=== PATIENT | female | born 1940 | race Caucasian/White ===

== ENCOUNTER → 2017-11-16 08:10 | Outpatient (POV) | payer MEDICARE, SELFPAY | PROVIDERS: Visit Provider Dermatology | DX: Z00.00 Encounter for general adult medical examination without abnormal findings (principal) ==

== ENCOUNTER → 2018-01-23 07:43 | Outpatient (POV) | payer MEDICARE, SELFPAY | PROVIDERS: Visit Provider Dermatology | DX: Z00.00 Encounter for general adult medical examination without abnormal findings (principal) ==

== ENCOUNTER → 2018-10-02 07:58 | Outpatient (POV) | payer MEDICARE, SELFPAY | PROVIDERS: Visit Provider Dermatology | DX: Z00.00 Encounter for general adult medical examination without abnormal findings (principal) ==

== ENCOUNTER → 2018-10-04 08:52 | Outpatient (CLI) | payer MEDICARE, SELFPAY ==
--- NOTE | 2018-10-04 | NVE_ITS ---
Venous Exam Indications: 729.5 Pain in limb. Knot distal medial calf. Denies trauma. IMPRESSIONS 1. No evidence of deep or superficial vein thrombosis involving the left lower extremity 2. 1.9 cm hyperechoic nodule seen distal medial calf. ? lipoma. Left lower extremity venous duplex evaluation. Doppler flow study including spectral analysis, color and solomon scale imaging. Location: Vascular laboratory. Patient status: Outpatient. Tables: Venous flow and imaging: + +-------+ + Location Overall Flow properties + +-------+ + Left common femoral Patent Normal phasicity; spontaneous; normal augmentation; compressible + +-------+ + Left saphenofemoral junction Patent Compressible + +-------+ + Left profunda femoral Patent Compressible + +-------+ + Left femoral Patent Normal phasicity; spontaneous; normal augmentation; compressible + +-------+ + Left greater saphenous Patent Normal phasicity; spontaneous; normal augmentation; compressible + +-------+ + Left popliteal Patent Normal phasicity; spontaneous; normal augmentation; compressible + +-------+ + Left posterior tibial Patent Compressible + +-------+ + Left peroneal Patent Compressible + +-------+ + Left gastrocnemius Patent Compressible + +-------+ + Left soleal Patent Compressible + +-------+ + (Report amended ) Electronically signed by: Ranjit Azevedo [id number]
[2018-10-04 09:17] LABS: Basophils % 0.4 % (0.1-2.0); Eosinophils # 0.1 K/mm3 (0.0-0.4); Eosinophils % 1.7 % (0.1-12.0); Hematocrit 41.6 % (37.0-47.0); Hemoglobin 12.7 g/dL (12.2-16.2); Lymphocytes # 2.2 K/mm3 (0.7-4.5); Mean Corpuscular HGB Conc 30.5 g/dL (31.8-35.4); Mean Corpuscular Hemoglobin 28.7 pg (27.0-31.2); Mean Corpuscular Volume 94.2 fl (81-99); Monocytes # 0.6 K/mm3 (0.1-1.0); Monocytes % 8.6 % (1.7-9.3); Neutrophils # 3.6 K/mm3 (1.8-7.8); Neutrophils % 55.4 % (37.0-80.0); Platelet Count 229 K/mm3 (142-424); Red Blood Count 4.42 M/mm3 (4.20-5.40); Red Cell Distribution Width 13.2 % (11.5-17.5); White Blood Count 6.4 K/mm3 (4.8-10.8)
[2018-10-04 11:28] LABS: Alanine Aminotransferase 23 U/L (12-78); Albumin Level 3.5 gm/dL (3.4-5.0); Albumin/Globulin Ratio 1.2 (1.1-1.8); Alkaline Phosphatase 58 U/L (46-116); Anion Gap 14.1 mEq/L (5-15); Aspartate Amino Transferase 15 U/L (15-37); Bilirubin,Total 0.4 mg/dL (0.2-1.0); Blood Urea Nitrogen 18 mg/dL (7-18); Calcium 8.7 mg/dL (8.5-10.1); Carbon Dioxide 28 mmol/L (21.0-32.0); Chloride 107 mmol/L (98-107); Chol/HDL Ratio 2.9 (1-3.5); Cholesterol 195 mg/dL (140-200); Creatinine,Serum 0.79 mg/dL (0.55-1.02); Estimated Glomerular Filt Rate 70 ml/min (>60); GFR (African American) 85 ML/MIN (>60); Glucose 86 mg/dL (74-106); HDL Cholesterol 67 mg/dL (29-89); Iron 96 ug/dl (28-170); LDL Cholesterol 106 mg/dL (0-130); Potassium 4.1 mmoL/L (3.5-5.1); Sodium 145 mmol/L (136-145); Thyroid Stimulating Hormone 0.68 uIU/ml (0.358-3.740); Total Protein,Serum 6.5 gm/dL (6.4-8.2); Triglycerides 111 mg/dL (30-200); VLDL Cholesterol 22 mg/dL (0-40)
[2018-10-05 17:12] LABS: Vitamin B12 454 pg/mL (232-1245); Vitamin D 25 Hydroxy 19.9 ng/mL (30.0-100.0)
== END ==
PROVIDERS: Referring Provider Family Medicine; Visit Provider Family Medicine
DX: R63.4 Abnormal weight loss (principal); R53.83 Other fatigue; M79.605 Pain in left leg; I83.812 Varicose veins of left lower extremity with pain; E55.9 Vitamin D deficiency, unspecified; Z79.899 Other long term (current) drug therapy
CPT/HCPCS: 36415; 80053; 80061; 82607; 82652; 83540; 84443; 85025; 93971

== ENCOUNTER → 2019-11-19 08:18 | Outpatient (POV) | payer MEDICARE, SELFPAY | PROVIDERS: PCP Family Medicine; Visit Provider Dermatology | DX: Z00.00 Encounter for general adult medical examination without abnormal findings (principal) ==

== ENCOUNTER → 2020-09-23 09:27 | Outpatient (CLI) | payer MEDICARE, SELFPAY ==
--- NOTE | 2020-09-23 09:34 | XR_ITS ---
PROCEDURE: XR CHEST 2V CLINICAL HISTORY: PERSISTENT COUGH COMPARISON: CT CT ABDOMEN PELVIS W CON from 06/05/2019 FINDINGS: The cardiomediastinal silhouette and pulmonary vascularity are within normal limits. Increased markings are once again noted in the right lower lobe and right middle lobe. Calcified nodes are present in the right hilum. In the anterior clear space there are increased markings of as well which appear somewhat tubular. There is thoracic kyphosis. IMPRESSION: Persistent atelectasis or infiltrate in the right middle lobe and right lower lobe Increased markings in the anterior clear space probably right upper lobe having a somewhat tubular appearance which could be related to bronchiectasis is or unusual consolidation. Consider chest CT with contrast for further evaluation. Dictated by: Ranjit Azevedo MD 09/23/2020 11:50 Ranjit Azevedo MD in [place] 09/23/2020 11:50
== END ==
PROVIDERS: PCP Family Medicine; Visit Provider Family Medicine
DX: R05 Cough (principal)
CPT/HCPCS: 71046

== ENCOUNTER 2021-03-03 10:35 | Emergency (ER) | payer MEDICARE, SELFPAY ==
[2021-03-03 10:37] VITALS: BP 154/88; PULSE 73; RESP 18; TEMP 37.1; O2SAT 95; BMI 17.2
[2021-03-03 11:26] LABS: Coronavirus 19, PCR Not Detected (NotDetected); Influenza A, PCR Not Detected (NotDetected); Influenza B, PCR Not Detected (NotDetected)
[2021-03-03 11:28] LABS: Microscopic, Urine URINE MICROSCOPIC (MICROSCOPIC)
--- NOTE | 2021-03-03 11:32 | ECG_ITS ---
APPROVED REPORT Exam: Resting ECG HR:60 bpm ECG Measurements Heart Rate 60 AXES MI 152 P 10 QRSd 62 QRS 0 QT 390 T 53 QTc 390 Conclusion Normal sinus rhythm Low voltage QRS Borderline ECG Electronically signed by : Kayden Jiménez MD 03/04/2021 21:40:09
[2021-03-03 11:34] LABS: Basophils # 0.1 K/mm3 (0-0.2); Basophils % 0.5 % (0.1-2.0); Eosinophils # 0.1 K/mm3 (0.0-0.4); Eosinophils % 0.8 % (0.1-12.0); Hemoglobin 14.5 g/dL (12.2-16.2); Lymphocytes # 1.9 K/mm3 (0.7-4.5); Lymphocytes % 20.4 % (10-50); Mean Corpuscular HGB Conc 33.8 g/dL (31.8-35.4); Mean Corpuscular Hemoglobin 32.1 pg (27.0-31.2); Mean Corpuscular Volume 95.1 fl (81-99); Mean Platelet Volume 8.9 fl (7.4-10.4); Monocytes # 0.8 K/mm3 (0.1-1.0); Monocytes % 8.8 % (1.7-9.3); Neutrophils # 6.3 K/mm3 (1.8-7.8); Neutrophils % 69.5 % (37.0-80.0); Platelet Count 285 K/mm3 (142-424); Red Blood Count 4.52 M/mm3 (4.20-5.40); Red Cell Distribution Width 13.3 % (11.5-17.5); White Blood Count 9.1 K/mm3 (4.8-10.8)
[2021-03-03 11:46] LABS: Appearance,Urine CLEAR (Clear); Bilirubin,Urine Negative (Negative); Blood, Urine Negative (Negative); Color,Urine YELLOW (Yellow); Glucose,Urine (UA) Negative (Negative); Ketones,Urine Negative (Negative); Leukocyte Esterase,Urine 1+ (Negative); Nitrate,Urine Negative (Negative); Protein,Urine Negative (Negative); Specific Gravity, Urine <= 1.005 (1.005-1.030); Urobilinogen,Urine 0.2 EU/dl (0.2)
[2021-03-03 11:48] LABS: Activated Partial Thrombo Time 25.6 seconds (22.8-30.6); INR 0.92 (0.9-1.1); Prothrombin Time 10.5 seconds (10.1-12.5)
[2021-03-03 12:01] LABS: Alanine Aminotransferase 26 U/L (12-78); Albumin Level 3.6 g/dl (3.5-5.0); Albumin/Globulin Ratio 1.3 (1.1-1.8); Alkaline Phosphatase 53 U/L (38-126); Anion Gap 9.4 mEq/L (5-15); Aspartate Amino Transferase 32 U/L (14-36); Bilirubin,Total 0.5 mg/dl (0.2-1.3); Blood Urea Nitrogen 20 mg/dl (7-17); Calcium 8.8 mg/dl (8.4-10.2); Carbon Dioxide 28 mmol/L (22.0-30.0); Chloride 103 mmol/L (98-107); Creatinine Clearance Estimated 28 mL/min (50-200); Estimated Glomerular Filt Rate 69 ml/min (>60); GFR (African American) 83 ML/MIN (>60); Globulin 2.8 g/dL (1.3-3.2); Glucose 88 mg/dl (74-100); Lipase 109 U/L (23-300); Potassium 4.4 mmoL/L (3.5-5.1); Sodium 136 mmol/L (136-145); Total Protein,Serum 6.4 g/dl (6.3-8.2)
--- NOTE | 2021-03-03 13:12 | HMH.EDGENADL ---
ED Disposition Clinical Impression: Epigastric abdominal pain Disposition: Home, Self-Care Condition on Discharge: Fair Referrals: Christiano Hernandez MD [Primary Care Provider] - - Critical Care Critical Care Time: No Attestation: On 03/03/21, the high probability of a clinically significant, sudden or life threatening deterioration of the following system(s) required my full and direct attention, intervention and personal management. The time I documented below is in addition to time spent performing reported procedures but includes the following listed in this critical care notation. Medical Decision Making - Medical Records Medical records reviewed: Yes: I reviewed the patient's medical records. - [facility] Inquiry Pt receiving controlled substance: No Vital Signs: 03/03/21 10:37 03/03/21 14:39 Temperature 98.8 F 98.8 F Temperature Source Oral Pulse Rate 67 Pulse Rate [Right Radial] 73 Respiratory Rate 18 18 Blood Pressure 160/94 H Blood Pressure [Right Arm] 154/88 H Blood Pressure Mean [Right Arm] 110 Blood Pressure Source Automatic Cuff Blood Pressure Source [Right Arm] Automatic Cuff Blood Pressure Position Sitting Blood Pressure Position [Right Arm] Sitting 02 Sat by Pulse Oximetry 95 Oxygen Delivery Method Room Air Room Air - Lab Data Lab results reviewed: Yes: I reviewed the patient's lab results. Lab Results 03/03/21 11:15: Urine Color Yellow, Urine Appearance Clear, Urine pH 6.0, Ur Specific [place] <= 1.005, Urine Protein Negative, Urine Glucose (UA) Negative, Urine Ketones Negative, Urine Blood Negative, Urine Nitrate Negative, Urine Bilirubin Negative, Urine Urobilinogen 0.2, Ur Leukocyte Esterase 1+ A, Urine RBC 3-5, Urine WBC 3-5 03/03/21 11:15: WBC 9.1, RBC 4.52, Hgb 14.5, Hct 43.0, MCV 95.1, MCH 32.1 H, MCHC 33.8, RDW 13.3, Plt Count 285, MPV 8.9, Neut % (Auto) 69.5, Lymph % (Auto) 20.4, [place] % (Auto) 8.8, Eos % (Auto) 0.8, Baso % (Auto) 0.5, Neut # (Auto) 6.3, Lymph # (Auto) 1.9, [place] # (Auto) 0.8, Eos # (Auto) 0.1, Baso # (Auto) 0.1 03/03/21 11:15: Sodium 136, Potassium 4.4, Chloride 103, Carbon Dioxide 28, Anion Gap 9.4, BUN 20 H, Creatinine 0.80, Estimated Creat Clear 28, Estimated GFR 69, Est GFR ( Amer) 83, Glucose 88, Calcium 8.8, Total Bilirubin 0.5, AST 32, ALT 26, Alkaline Phosphatase 53, Troponin I 0.01, Total Protein 6.4, Albumin 3.6, Globulin 2.8, Albumin/Globulin Ratio 1.3 03/03/21 11:15: SARS-CoV-2 (PCR) Not detected, Influenza A Untype (PCR) Not detected, Influenza Type B (PCR) Not detected 03/03/21 11:15: PT 10.5, INR 0.92, APTT 25.6 03/03/21 11:15: Lipase 109 Result diagrams: 03/03/21 11:15 03/03/21 11:15 Orders (Tests/Meds): ED MEDICATIONS Discontinued Medications Generic Name Dose Route Start Last Admin Trade Name Freq PRN Reason Stop Dose Admin Belladonna Alkaloids 60 ml 03/03/21 12:07 03/03/21 12:18 Gi Cocktail 60ml Udc PO 03/03/21 12:08 60 ml ONCE ONE Administration Lactated Ringer's 500 mls @ 999 mls/hr 03/03/21 12:15 03/03/21 12:18 Lactated Ringer's 1000 Ml Bag IV 03/03/21 12:45 999 mls/hr .Q31M TERRI Administration Ondansetron HCl 4 mg 03/03/21 12:07 03/03/21 12:18 Ondansetron 4mg/2ml Vial IV 03/03/21 12:08 4 mg ONCE ONE Administration ORDERS Category Date Time Status Urine Culture Stat Micro 03/03/21 11:15 Received Medical Decision Narrative: Is an 81-year-old female with past medical history of hypertension presenting to the ED for generalized weakness. Patient is awake, alert, not in acute distress. Patient is hemodynamically stable, afebrile. Patient's physical exam is unremarkable. Patient has clear breath sounds bilaterally soft nondistended nontender abdomen. Differential includes was not limited due to generalized weakness secondary to viral gastroenteritis, otitis, gastritis, ACS. Given this a CBC, CMP, EKG, troponin performed. Patient is given a GI cocktail, Zofran, IV
[2021-03-03 13:52] LABS: Troponin I 0.01 ng/ml (0.00-0.034)
[2021-03-03 14:39] VITALS: BP 160/94; PULSE 67; RESP 18; TEMP 37.1; O2SAT 95
== END 2021-03-03 14:39 | disposition home or self-care (01) ==
PROVIDERS: Emergency Provider Emergency Medicine; PCP Family Medicine
DX: Z20.822 Contact with and (suspected) exposure to COVID-19 (principal); R10.13 Epigastric pain; R11.0 Nausea; I10 Essential (primary) hypertension
CPT/HCPCS: 80053; 81001; 83690; 84484; 85025; 85610; 85730; 87086; 93005; 96365; 96375; 99284; C9803; J2405; U0003; U0005

== ENCOUNTER 2021-03-05 08:40 | Emergency (ER) | payer MEDICARE, SELFPAY ==
[2021-03-05 08:41] VITALS: BP 165/86; PULSE 77; RESP 16; TEMP 36.7; O2SAT 97; BMI 17.7
[2021-03-05 09:00] VITALS: BP 145/95; PULSE 90; RESP 18; O2SAT 97
--- NOTE | 2021-03-05 09:02 | HMH.EDGENADL ---
ED Disposition Clinical Impression: Nausea Abdominal pain Qualifiers: Abdominal location: generalized Qualified Code(s): R10.84 - Generalized abdominal pain Disposition: Home, Self-Care Condition on Discharge: Good Instructions: DI for Acute Abdominal Pain, DI for Nausea -- Adult Additional Instructions: Call today to make appointment to see Dr. Hernandez on Monday in his [place] office for your abdominal pain and abnormal CT scan findings.. Zofran as needed for nausea. Prescriptions: Ondansetron [Zofran 4mg ODT] 4 mg PO TIDP PRN #10 tab PRN Reason: Nausea And Vomiting Transmission Status: Pending to [facility]/pharmacy #[id number] Referrals: Christiano Hernandez MD [Primary Care Provider] - - Critical Care Critical Care Time: No Attestation: On 03/05/21, the high probability of a clinically significant, sudden or life threatening deterioration of the following system(s) required my full and direct attention, intervention and personal management. The time I documented below is in addition to time spent performing reported procedures but includes the following listed in this critical care notation. Medical Decision Making - [facility] Inquiry Pt receiving controlled substance: No Vital Signs: 03/05/21 08:41 03/05/21 09:00 03/05/21 09:30 Temperature 98.1 F Temperature Source Oral Pulse Rate 90 87 Pulse Rate [Right Radial] 77 Respiratory Rate 16 18 18 Blood Pressure 145/95 H 150/85 H Blood Pressure [Right Arm] 165/86 H Blood Pressure Mean 104 114 Blood Pressure Mean [Right Arm] 112 Blood Pressure Source [Right Arm] Automatic Cuff Blood Pressure Position [Right Arm] Sitting 02 Sat by Pulse Oximetry 97 97 96 Oxygen Delivery Method Room Air - Lab Data Lab Results 03/05/21 09:00: WBC 8.3, RBC 4.48, Hgb 13.9, Hct 42.5, MCV 94.9, MCH 31.1, MCHC 32.8, RDW 13.4, Plt Count 236, MPV 7.8, Neut % (Auto) 66.9, Lymph % (Auto) 23.4, [place] % (Auto) 7.4, Eos % (Auto) 1.3, Baso % (Auto) 0.9, Neut # (Auto) 5.6, Lymph # (Auto) 2.0, [place] # (Auto) 0.6, Eos # (Auto) 0.1, Baso # (Auto) 0.1 03/05/21 09:00: Sodium 133 L, Potassium 5.0, Chloride 99, Carbon Dioxide 30, Anion Gap 9.0, BUN 16, Creatinine 0.70, Estimated Creat Clear 28, Estimated GFR 80, Est GFR ( Amer) 97, Glucose 89, Calcium 8.8, Total Bilirubin 1.1, AST 38 H, ALT 19 D, Alkaline Phosphatase 45, Total Protein 6.8, Albumin 3.8, Globulin 3.0, Albumin/Globulin Ratio 1.3, Amylase 87, Lipase 98 03/05/21 09:00: Troponin I 0.01 Result diagrams: 03/05/21 09:00 03/05/21 09:00 Orders (Tests/Meds): ED MEDICATIONS Discontinued Medications Generic Name Dose Route Start Last Admin Trade Name Freq PRN Reason Stop Dose Admin Iopamidol 70 ml 03/05/21 09:55 03/05/21 09:55 Iopamidol-370 (76%);100ml Bottle IV 03/05/21 09:56 70 ml ONCE ONE Administration Ondansetron HCl 4 mg 03/05/21 09:19 03/05/21 09:25 Ondansetron 4mg/2ml Vial IV 03/05/21 09:20 4 mg ONCE ONE Administration Sodium Chloride 10 ml 03/05/21 09:55 03/05/21 09:55 Sodium Chloride 0.9% 10ml Vial IV 03/05/21 09:56 10 ml ONCE ONE Administration ORDERS Category Date Time Status Troponin I Q3H Lab 03/05/21 12:30 Ordered Troponin I Q3H Lab 03/05/21 15:30 Ordered UA [Urinalysis and Microscopic] Stat Lab 03/05/21 09:05 Ordered - ECG Data Tracing #1 EKG interpreted by Carlos Enrique lAves MD: Rhythm: sinus Rate: 76 [place]: normal Ectopy: none Conduction: normal ST Segment Changes: none T Wave Changes: none Q Waves: none No evidence of acute ischemia or injury Normal electrocardiogram - Physician Consults Physician Consulted: David Time: 10:40 Reason -: Pt condition Comment/Response: Discussed all clinical findings and CT scan reading. He request the patient follow-up with him in his office in [place] on Monday. Medical Decision Narrative: Patient does not have any pulmonary symptoms referable to the findings on her CT sc
[2021-03-05 09:15] LABS: Basophils # 0.1 K/mm3 (0-0.2); Basophils % 0.9 % (0.1-2.0); Eosinophils # 0.1 K/mm3 (0.0-0.4); Eosinophils % 1.3 % (0.1-12.0); Hematocrit 42.5 % (37.0-47.0); Hemoglobin 13.9 g/dL (12.2-16.2); Lymphocytes % 23.4 % (10-50); Mean Corpuscular HGB Conc 32.8 g/dL (31.8-35.4); Mean Corpuscular Hemoglobin 31.1 pg (27.0-31.2); Mean Corpuscular Volume 94.9 fl (81-99); Mean Platelet Volume 7.8 fl (7.4-10.4); Monocytes # 0.6 K/mm3 (0.1-1.0); Monocytes % 7.4 % (1.7-9.3); Neutrophils # 5.6 K/mm3 (1.8-7.8); Neutrophils % 66.9 % (37.0-80.0); Platelet Count 236 K/mm3 (142-424); Red Blood Count 4.48 M/mm3 (4.20-5.40); Red Cell Distribution Width 13.4 % (11.5-17.5); White Blood Count 8.3 K/mm3 (4.8-10.8)
--- NOTE | 2021-03-05 09:15 | CT_ITS ---
PROCEDURE: CT ABDOMEN PELVIS W CON CLINICAL INDICATION: abdominal pain COMPARISON: CT ABDPELW/O CT ABD PELVIS W/O CONTRAST from 05/16/[address] ABDOMEN PELVIS W CON from 06/05/2019 TECHNIQUE: IV Contrast: 75ML Isovue 370 Oral Contrast None Axial images obtained with sagittal and coronal reformats. All CT scans at the facility use one or more dose reduction, viz: automated exposure control, ma/kV adjustment per patient size (including targeted exams where dose is matched to indication, i.e. head), or iterative reconstruction technique. FINDINGS: LOWER THORAX: There is volume loss of the right middle lobe. In the right upper lobe inferiorly there are prominent pulmonary vessels. I suppose these could also represent dilated fluid-filled bronchi. CTA of the chest with delayed imaging would be helpful for further evaluation. Volume loss is present in the lingula as well. Numerous mildly dilated vascular structures in the right lower lobe laterally and peripherally. There are scattered pleural and sub pleural parenchymal opacities in both lower lobes. ABDOMEN & PELVIS: The liver, spleen, adrenal glands, and pancreas have an unremarkable appearance. 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 Prominent extrarenal pelvis is present on the right. Nonobstructing stone is present in the upper pole of the right kidney at 3 mm with a cortical scar peripheral to this region. No obvious ureteral calculi. No intestinal obstruction or free air. No radiopaque gallstones. No evidence of appendicitis or diverticulitis. There is diverticulosis of the sigmoid colon. There is diffuse osteopenia of the spine. Degenerative changes in the lumbar spine. IMPRESSION: What appears to represent diffuse vascular dilatation of the right upper lobe noted with right middle lobe and lingular volume loss and mild vascular dilatation of the peripheral right lower lobe. These could also be related to fluid-filled bronchi. Nonemergent dedicated CTA of the chest with both arterial and venous phase imaging may provide further evaluation. Scattered small opacities are present in the lower lobes and are nonspecific. Prior left nephrectomy. Mild prominence of the right renal pelvis not significantly changed. Nonobstructing right renal calculus with cortical scar Colonic diverticulosis without diverticulitis. No acute abdominal or pelvic findings Dictated by: Ranjit Azevedo MD 03/05/2021 10:14 Ranjit Azevedo MD in [place] 03/05/2021 10:14
[2021-03-05 09:19] LABS: Alanine Aminotransferase 19 U/L (12-78); Albumin Level 3.8 g/dl (3.5-5.0); Albumin/Globulin Ratio 1.3 (1.1-1.8); Alkaline Phosphatase 45 U/L (38-126); Amylase 87 U/L (30-110); Aspartate Amino Transferase 38 U/L (14-36); Bilirubin,Total 1.1 mg/dl (0.2-1.3); Blood Urea Nitrogen 16 mg/dl (7-17); Calcium 8.8 mg/dl (8.4-10.2); Carbon Dioxide 30 mmol/L (22.0-30.0); Chloride 99 mmol/L (98-107); Creatinine Clearance Estimated 28 mL/min (50-200); Estimated Glomerular Filt Rate 80 ml/min (>60); GFR (African American) 97 ML/MIN (>60); Glucose 89 mg/dl (74-100); Lipase 98 U/L (23-300); Sodium 133 mmol/L (136-145); Total Protein,Serum 6.8 g/dl (6.3-8.2)
[2021-03-05 09:30] VITALS: BP 150/85; PULSE 87; RESP 18; O2SAT 96
--- NOTE | 2021-03-05 09:33 | ECG_ITS ---
APPROVED REPORT Exam: Resting ECG HR:76 bpm ECG Measurements Heart Rate 76 AXES IN 162 P 54 QRSd 66 QRS 20 QT 366 T 55 QTc 411 Conclusion Normal sinus rhythm Normal ECG Electronically signed by : Kayden Jiménez MD 03/06/2021 19:30:32
--- NOTE | 2021-03-05 09:35 | PC.NURSE ---
Pt to CT
[2021-03-05 09:41] LABS: Troponin I 0.01 ng/ml (0.00-0.034)
--- NOTE | 2021-03-05 10:37 | PC.NURSE ---
Dr David clinton
[2021-03-05 11:18] VITALS: BP 149/87; PULSE 89; RESP 16; TEMP 36.7; O2SAT 97
== END 2021-03-05 11:20 | disposition home or self-care (01) ==
PROVIDERS: Emergency Provider Emergency Medicine; PCP Family Medicine
DX: R10.84 Generalized abdominal pain (principal); R11.0 Nausea
CPT/HCPCS: 36415; 74177; 80053; 82150; 83690; 84484; 85025; 93005; 96374; 99283; J2405; Q9967

== ENCOUNTER → 2021-04-27 14:25 | Outpatient (CLI) | payer MEDICARE, SELFPAY ==
[2021-04-27 15:24] LABS: Basophils # 0.1 K/mm3 (0-0.2); Basophils % 0.7 % (0.1-2.0); Eosinophils # 0.1 K/mm3 (0.0-0.4); Eosinophils % 0.9 % (0.1-12.0); Hematocrit 43.6 % (37.0-47.0); Hemoglobin 13.8 g/dL (12.2-16.2); Lymphocytes # 1.8 K/mm3 (0.7-4.5); Lymphocytes % 26.7 % (10-50); Mean Corpuscular HGB Conc 31.7 g/dL (31.8-35.4); Mean Corpuscular Hemoglobin 31.4 pg (27.0-31.2); Mean Corpuscular Volume 98.9 fl (81-99); Mean Platelet Volume 8.7 fl (7.4-10.4); Monocytes # 0.4 K/mm3 (0.1-1.0); Monocytes % 5.6 % (1.7-9.3); Neutrophils # 4.6 K/mm3 (1.8-7.8); Neutrophils % 66.2 % (37.0-80.0); Platelet Count 297 K/mm3 (142-424); Red Blood Count 4.41 M/mm3 (4.20-5.40); Red Cell Distribution Width 13.7 % (11.5-17.5); White Blood Count 6.9 K/mm3 (4.8-10.8)
[2021-04-27 16:05] LABS: C-Reactive Protein 1.2 mg/L (0-4)
[2021-05-02 19:08] LABS: D001-IgE D pteronyssinus <0.10 kU/L (Class 0); D002-IgE D farinae <0.10 kU/L (Class 0); E001-IgE Cat Dander <0.10 kU/L (Class 0); E005-IgE Dog Dander <0.10 kU/L (Class 0); E072-IgE Mouse Urine <0.10 kU/L (Class 0); G002-IgE Bermuda Grass <0.10 kU/L (Class 0); G006-IgE Timothy Grass <0.10 kU/L (Class 0); I006-IgE Cockroach, German <0.10 kU/L (Class 0); Immunoglobulin E, Total 333 IU/mL (6-495); M001-IgE Penicillium chrysogen <0.10 kU/L (Class 0); M002-IgE Cladosporium herbarum <0.10 kU/L (Class 0); M003-IgE Aspergillus fumigatus <0.10 kU/L (Class 0); M006-IgE Alternaria alternata <0.10 kU/L (Class 0); T001-IgE Maple/Box Elder <0.10 kU/L (Class 0); T003-IgE Common Silver Birch <0.10 kU/L (Class 0); T006-IgE Cedar, Mountain <0.10 kU/L (Class 0); T007-IgE Oak, White <0.10 kU/L (Class 0); T008-IgE Elm, American <0.10 kU/L (Class 0); T010-IgE Walnut <0.10 kU/L (Class 0); T011-IgE Maple Leaf Sycamore <0.10 kU/L (Class 0); T014-IgE Cottonwood <0.10 kU/L (Class 0); T015-IgE Ash, White <0.10 kU/L (Class 0); T022-IgE Pecan, Hickory <0.10 kU/L (Class 0); T070-IgE White Mulberry <0.10 kU/L (Class 0); W001-IgE Ragweed, Short <0.10 kU/L (Class 0); W011-IgE Thistle, Russian <0.10 kU/L (Class 0); W014-IgE Pigweed, Common <0.10 kU/L (Class 0); W018-IgE Sheep Sorrel <0.10 kU/L (Class 0)
== END ==
PROVIDERS: PCP Family Medicine; Visit Provider Internal Medicine Pulmonary Disease
DX: J45.909 Unspecified asthma, uncomplicated (principal); R06.00 Dyspnea, unspecified
CPT/HCPCS: 36415; 82785; 85025; 86003; 86140

== ENCOUNTER 2021-12-08 19:15 | Emergency (ER) | payer MEDICARE, SELFPAY ==
--- NOTE | 2021-12-08 19:24 | XR_ITS ---
PROCEDURE INFORMATION: Exam: XR Left Shoulder Exam date and time: 12/08/2021 7:35 PM Age: 81 years old Clinical indication: Injury or trauma; Fall; Blunt trauma (contusions or hematomas); Shoulder; Left TECHNIQUE: Imaging protocol: Radiologic exam of the Left shoulder. Views: 2 or more views. COMPARISON: CT CHEST WO CONTRAST 03/09/2021 1:26 PM FINDINGS: Bones/joints: There is a subtle linear lucency involving the superolateral and superomedial humeral head/neck junction suggestive of subtle nondisplaced acute fracture. There is mild associated hazy soft tissue density suggesting edema. The acromioclavicular and coracoclavicular joints appear intact. No dislocation. The visualized thoracic spine demonstrates moderate degenerative changes at multiple levels. Soft tissues: No significant soft tissue edema. No subcutaneous emphysema or radiopaque foreign bodies. No pneumothorax. No appreciable rib fractures. IMPRESSION: 1. Subtle linear lucency involving the superolateral and superomedial humeral head/neck junction suggestive of subtle nondisplaced acute fracture with mild associated hazy soft tissue density suggesting edema.
--- NOTE | 2021-12-08 19:24 | XR_ITS ---
PROCEDURE INFORMATION: Exam: XR Left Humerus Exam date and time: 12/08/2021 7:39 PM Age: 81 years old Clinical indication: Injury or trauma; Fall; Blunt trauma (contusions or hematomas); Arm, upper; Left TECHNIQUE: Imaging protocol: Radiologic exam of the Left humerus. Views: 2 or more views. COMPARISON: CR Shoulder L 12/08/2021 7:35 PM FINDINGS: Bones/joints: No evidence of dislocation. The acromioclavicular and coracoclavicular joints appear preserved. Previously seen cortical contour lucencies involving the mediolateral junction of humeral head/neck junction are less well visualized on current exam. Soft tissues: Mildly increased soft tissue density adjacent to the humeral head laterally suggests soft tissue edema. No subcutaneous emphysema or radiopaque foreign bodies. IMPRESSION: Previously seen cortical contour lucencies involving the mediolateral junction of humeral head/neck junction suggestive of acute subtle fracture are less well visualized on current exam. Correlate clinically.
[2021-12-08 20:13] VITALS: BP 102/67; PULSE 68; RESP 19; TEMP 37.1; O2SAT 98; BMI 17.2
--- NOTE | 2021-12-08 20:23 | EXP.UTC ---
Discharge Plan Disposition Patient Disposition: Home, Self-Care Condition: Good Prescriptions Prescriptions: No Action albuterol sulfate 8.5 GM HFA aerosol inhaler 8.5 gm IH Q4H 30 Days Qty: 1 0RF Referrals Referrals: German Gutierrez JR, MD [Physician] - Enter time for follow up (call office tomorrow for appointment) Christiano Hernandez MD [Primary Care Provider] - Enter time for follow up Activity Restrictions/Add. Instructions Additional Instructions/Restrictions: Ice to shoulder/upper arm for 20min every couple hours to help with pain and swelling You said you couldnt take Motrin so take Tylneol if you can take it as directed on package for pain Wear sling as advised in the [facility] Further treatment per Orthopedics Dr Gutierrez Call the office tomorrow or appointment on Monday Return if needed Straight to ER if any lifethreatening symptoms Clinical Impressions Clinical Impression: Fracture of head of humerus Qualifiers: Encounter type: initial encounter Fracture type: closed Laterality: left Qualified Code(s): S42.292A - Other displaced fracture of upper end of left humerus, initial encounter for closed fracture Discharge ED Provider: Mirat Gamez [facility] [place] HPI General Stated complaint: ao 12/08, left arm pain Time Seen by Provider: 12/08/21 20:00 Mode of Arrival: Ambulatory Source of Information: Patient Limitations: No Limitations Description of Symptoms (Recalled from Triage Doc. by RN): patient comes in today with complaints of fall outside while looking at tomatoes and injured left shoulder. HEENT Symptoms (Recalled from RN notes): No Resp Symptoms (Recalled from RN notes): No Skin Symptoms (Recalled from RN notes): No MS Symptoms (Recalled from RN notes): Yes Functional Status (Recalled from RN notes): n/a History of Present Illness Provider Complaint: Patient states that she was outside looking at her tomatoes when she slipped and fell and landed on her left shoulder States that she has been having pain in her upper arm/shoulder ever since with movement so she came in Related Data Previous Rx's Medication Instructions Recorded albuterol sulfate 90 mcg/actuation 8.5 gm IH Q4H 30 days ##1 06/05/19 aerosol inhaler Allergies Allergy/AdvReac Type Severity Reaction Status Date / Time aspirin [ASPIRIN] Allergy Unknown BLEEDING Verified 12/08/21 20:17 [facility] Worker's Comp Is this a Worker's Comp case?: No PFSH PFSH Social History Smoking Status: Former smoker alcohol intake: never current occupational status: retired ROS Obtained: Yes All systems reviewed & no additional complaints except as documented and Yes Systems reviewed as appropriate & no additional complaints except as documented Constitutional Constitutional: Reports system reviewed and no additional complaints, except as documented and Reports as per HPI ENT Ears, Nose, Mouth, and Throat: Reports system reviewed and no additional complaints, except as documented Cardiovascular Cardiovascular: Reports system reviewed and no additional complaints, except as documented and Reports as per HPI Respiratory Respiratory: Reports system reviewed and no additional complaints, except as documented Genitourinary Female Genitourinary: Reports system reviewed and no additional complaints, except as documented Musculoskeletal Musculoskeletal: Reports system reviewed and no additional complaints, except as documented and Reports other (Pain in left shoulder and upper arm after falling earlier today) Neurologic Neurologic: Reports system reviewed and no additional complaints, except as documented and Reports as per HPI Physical Exam General General appearance: alert and in no apparent distress Chest Chest inspection: Present normal inspection and symmetric chest wall rise Respiratory Respiratory exam: Present normal lung sounds bilaterally; Absent respiratory distress Cardiovascular Cardiov
[2021-12-08 20:49] VITALS: BP 102/67; PULSE 68; RESP 19; TEMP 37.1
== END 2021-12-08 20:50 | disposition home or self-care (01) ==
PROVIDERS: Emergency Provider Nurse Practitioner; PCP Family Medicine
DX: S42.292A Other displaced fracture of upper end of left humerus, initial encounter for closed fracture (principal); W19.XXXA Unspecified fall, initial encounter; Z88.6 Allergy status to analgesic agent
CPT/HCPCS: 73030; 73060; 99283

== ENCOUNTER → 2022-01-07 11:27 | Outpatient (CLI) | payer MEDICARE, SELFPAY ==
--- NOTE | 2022-01-07 11:33 | XR_ITS ---
FINAL REPORT CLINICAL HISTORY: humerus fracture, f/u COMPARISON: 12/08/2021 FINDINGS: Left humerus Two views were obtained. There is deformity at the surgical neck of the humerus seen on the lateral view which appears to represent a healing fracture. There is sclerosis along the fracture line. There is posterior cortical disruption on the lateral view. The joint spaces appear normal. No soft tissue abnormality is identified. IMPRESSION: Healing fracture as above. Reviewed, Interpreted and Dictated by Wing Sanchez MD Transcribed by Drea Garcia Authenticated and [facility]
== END ==
PROVIDERS: PCP Family Medicine; Visit Provider Orthopaedic Surgery
DX: S42.292A Other displaced fracture of upper end of left humerus, initial encounter for closed fracture (principal)
CPT/HCPCS: 73060

== ENCOUNTER → 2022-03-18 20:48 | Outpatient (CLI) | payer MEDICARE, SELFPAY ==
[2022-03-18 21:09] LABS: Influenza A, PCR Not Detected (NotDetected); Influenza B, PCR Not Detected (NotDetected)
[2022-03-18 22:00] LABS: Coronavirus 19, PCR Detected (NotDetected)
== END ==
PROVIDERS: PCP Psychiatry & Neurology Sleep Medicine; Visit Provider Psychiatry & Neurology Sleep Medicine
DX: U07.1 COVID-19 (principal); R05.9 Cough, unspecified
CPT/HCPCS: C9803; U0003; U0005

== ENCOUNTER 2022-06-20 16:08 | Emergency (ER) | payer MEDICARE, SELFPAY ==
[2022-06-20 16:20] VITALS: BP 116/70; PULSE 93; RESP 18; TEMP 36.8; O2SAT 97; BMI 15.6
--- NOTE | 2022-06-20 16:31 | XR_ITS ---
PROCEDURE INFORMATION: Exam: XR Right Foot Exam date and time: 06/20/2022 4:31 PM Age: 82 years old Clinical indication: Pain; Foot; Right TECHNIQUE: Imaging protocol: Radiologic exam of the right foot. Views: 3 or more views. COMPARISON: No relevant prior studies available. FINDINGS: Bones/joints: Osteopenia. No acute fracture identified. No dislocation. No erosive changes. Mild degenerative changes. Soft tissues: Normal. IMPRESSION: Osteopenia. No acute osseous abnormality.
--- NOTE | 2022-06-20 16:34 | EXP.UTC ---
Discharge Plan Disposition Patient Disposition: Home, Self-Care Condition: Good Referrals Follow up/Referrals: Christiano Hernandez MD [Primary Care Provider] - See instructions Activity Restrictions/Add. Instructions Additional Instructions/Restrictions: *RICE, Rest the extremity, Ice 15-20 minutes 3-4 times daily, Compress- wear the luis wrap as discussed as much as possible to help reduce swelling and pain, Elevate the extremity when at rest *Luis wrap is for support and help control swelling, use it except in the shower. Be sure that is not to tight but not to loose either *Elevate when resting? *Ibuprofen as directed on package every 6-8 hours as needed for pain an inflammation if you can take them If need something more can take Tylenol in between doses of Ibuprofen to help Immediately follow up with your family doctor for new or worsening of symptoms, or no noticeable improvement over the next 3-5 days Clinical Impressions Clinical Impression: Foot sprain Instructions Patient Instructions: How To Perform RICE (Rest, Ice, Compress, Elevate), How to Apply an Luis Wrap, DI for Foot Sprain Discharge ED Provider: Mirta Gamez [facility] HPI General Stated complaint: [email or web address] inured R Foot Mode of Arrival: Ambulatory Source of Information: Patient Limitations: No Limitations Time Seen by Provider: 06/20/22 16:34 Description of Symptoms (Recalled from Triage Doc. by RN): pt c/o pain to medial aspect of R foot, in arch area. Pt reports of lastweek she thinks she twisted her ankle/foot, reports pain in foot since then. Redness noted to foot, no warmth noted. History of Present Illness Provider Complaint: Patient states that [place]vey[place] on and she was stepping up on drive way when she lost her balance and fell into another lady states that ever since she has been having pain on inside arch of foot States that she has been using her walker to get around but today when it was still hurting family wanted her to come in and get checked Related Data Allergies Allergy/AdvReac Type Severity Reaction Status Date / Time aspirin [ASPIRIN] Allergy Unknown BLEEDING Verified 06/20/22 16:38 [facility] PFSH [facility] Disclaimer: The information contained in this section may have been updated after the patient was seen, as this information can be updated by other users. Medical History (Updated 06/20/22 @ 17:21 by Mirta Gamez APRN) Bronchiectasis COPD exacerbation COVID-19 Surgical History History of hemorrhoidectomy History of hysterectomy Social History Smoking Status: Former smoker alcohol intake: never current occupational status: retired Travel in the last 8 weeks: Inside the [place] ROS Obtained: Yes All systems reviewed & no additional complaints except as documented and Yes Systems reviewed as appropriate & no additional complaints except as documented ENT Ears, Nose, Mouth, and Throat: Reports system reviewed and no additional complaints, except as documented and Reports as per HPI Cardiovascular Cardiovascular: Reports system reviewed and no additional complaints, except as documented and Reports as per HPI Respiratory Respiratory: Reports system reviewed and no additional complaints, except as documented and Reports as per HPI Gastrointestinal Gastrointestingal: Reports system reviewed and no additional complaints, except as documented and as per HPI Musculoskeletal Musculoskeletal: Reports system reviewed and no additional complaints, except as documented and Reports as per HPI Comments: pain in medial aspect of arch of foot since last after she twisted it Physical Exam General General appearance: alert and in no apparent distress Respiratory Respiratory exam: Present normal lung sounds bilaterally; Absent respiratory distress or wheezes Car
[2022-06-20 16:35] VITALS: BP 116/70; PULSE 93; RESP 18; TEMP 36.8; O2SAT 97; BMI 15.7
[2022-06-20 17:39] VITALS: BP 116/70; PULSE 93; RESP 18; TEMP 36.8; O2SAT 97
== END 2022-06-20 17:39 | disposition home or self-care (01) ==
PROVIDERS: Emergency Provider Nurse Practitioner; PCP Family Medicine
DX: S93.601A Unspecified sprain of right foot, initial encounter (principal); W18.41XA Slipping, tripping and stumbling without falling due to stepping on object, initial encounter
CPT/HCPCS: 73630; 99212; 99213; 99214; G0463

== ENCOUNTER 2023-06-27 11:09 | Outpatient (POV) | payer MEDICARE, SELFPAY | END 2023-06-27 23:59 | disposition home or self-care (01) | LOC: SC 11:10 | PROVIDERS: PCP Family Medicine; Visit Provider Dermatology | DX: Z00.00 Encounter for general adult medical examination without abnormal findings (principal) ==

== ENCOUNTER 2023-10-23 10:10 | Outpatient (CLI) | payer MEDICARE, SELFPAY ==
--- NOTE | 2023-10-23 10:11 | US_ITS ---
FINAL REPORT TECHNIQUE: Sonographic images of the thyroid were obtained. CLINICAL HISTORY: Low TSH level FINDINGS: THYROID ULTRASOUND The right thyroid gland measures 3.0 x 1.2 x 1.1 cm. The parenchyma shows normal echogenicity. There is a 14 x 10 x 8 cystic, TI-RADS 1 nodule. There is a 10 x 8 x 6 solid, hypoechoic TI-RADS 4 nodule. The left thyroid gland measures 4.2 x 1.4 x 1.2 cm. The parenchyma shows normal echogenicity. There is a 6 x 6 x 5, solid, isoechoic TI-RADS 3 nodule. There is an 11 x 7 x 7 solid, isoechoic TI-RADS 3 nodule. IMPRESSION: Multiple bilateral thyroid nodules. Follow-up ultrasound in 6 to 12 months is recommended. Reviewed, Interpreted and Dictated by Andres Escoto III, MD Transcribed by Destiny Layton Authenticated and [facility]
== END 2023-10-23 23:59 | disposition home or self-care (01) ==
LOC: RAD 10:11
PROVIDERS: PCP Family Medicine; Visit Provider Family Medicine
DX: R79.89 Other specified abnormal findings of blood chemistry (principal)
CPT/HCPCS: 76536

== ENCOUNTER 2024-03-11 10:24 | Emergency (ER) | payer MEDICARE, SELFPAY ==
[2024-03-11 10:25] VITALS: BP 157/111; PULSE 90; RESP 16; TEMP 36.5; O2SAT 95; BMI 15.6
--- NOTE | 2024-03-11 10:50 | CT_ITS ---
PROCEDURE INFORMATION: Exam: CT Head Without Contrast Exam date and time: 03/11/2024 11:10 AM Age: 84 years old Clinical indication: Pain; Headache; Additional info: GARCIA. Teeth removed last week. TECHNIQUE: Imaging protocol: Computed tomography of the head without contrast. Radiation optimization: All CT scans at this facility use at least one of these dose optimization techniques: automated exposure control; mA and/or kV adjustment per patient size (includes targeted exams where dose is matched to clinical indication); or iterative reconstruction. COMPARISON: US THYROID 10/23/2023 10:29 AM FINDINGS: Brain: There is no mass effect, midline shift, acute hemorrhage, extra-axial fluid collection or acute lobar infarct. Hemispheric white matter hypodensity likely represents chronic microvascular ischemic change. Cerebral ventricles: No ventriculomegaly. Paranasal sinuses: Polypoid mucosal thickening is noted in the left maxillary antrum with thickening of the wall indicating chronic disease. Mastoid air cells: Visualized mastoid air cells are well aerated. Orbital cavities: Patient is post bilateral cataract surgery. Bones: Unremarkable. No acute fracture. Soft tissues: Unremarkable. IMPRESSION: No acute intracranial process.
--- NOTE | 2024-03-11 10:51 | HMH.EDGENADL ---
Discharge Plan Disposition Patient Disposition: Home, Self-Care Prescriptions Prescriptions: No Action mometasone 0.1 % ointment 1 applic topical HS Qty: 60 1RF Referrals Follow up/Referrals: Indiana Ponce MD [Primary Care Provider] - See instructions Activity Restrictions/Add. Instructions Additional Instructions/Restrictions: No evidence of an abnormality within your CT scan and no clinical evidence of a neurovascular emergency. Your symptoms are most likely secondary to recent dental extraction and I recommend that you follow-up with your dentist if your symptoms persist. Clinical Impressions Clinical Impression: Acute oral pain, Headache Print Language Print Language: Qatari Discharge ED Provider: Keyur Chun General Adult HPI General Chief complaint: PAIN Stated complaint: pressure/numbness to back of head after teeth pull Time Seen by Provider: 03/11/24 10:46 Mode of Arrival: Ambulatory Source of Information: Patient Limitations: No Limitations Description of Symptoms (Recalled from ER Triage Doc. by RN): pt presents to ED c/o mouth pain, intermittent right ear pain and pressure to head.pt states she had 3 teeth pulled last Monday. pt states she went back to the dentist on Monday and is currently being treated for a dry socket. pt was prescribed Amoxicillin. History of Present Illness HPI narrative: Patient is an 84-year-old female presenting today with mouth pain and headache. She was in her normal state of health until she had multiple teeth extracted 1 week ago. Subsequently she developed pain in the surgical areas and also now pain in the superior lateral aspect of her right frontal and occipital scalp. She states it feels like heavy pressure and numbness. No neurologic symptoms no fevers no photophobia no neck stiffness etc. Related Data Previous Rx's ?Medication ?Instructions ?Recorded mometasone 0.1 % topical ointment 1 applic topical HS foot 03/05/24 dermatitis #60 grams Allergies Allergy/AdvReac Type Severity Reaction Status Date / Time aspirin (ASPIRIN) Allergy Unknown BLEEDING Verified 10/10/23 11:13 [facility] Disclaimer: The information contained in this section may have been updated after the patient was seen, as this information can be updated by other users. Medical History (Updated 03/11/24 @ 10:54 by Keyur Chun MD) History of ASCVD Chronic dermatitis of feet Neuropathy of both feet Anal stenosis Constipation due to outlet dysfunction Low blood pressure Weight loss, non-intentional COVID-19 COPD exacerbation Bronchiectasis Surgical History History of hemorrhoidectomy History of hysterectomy Social History Smoking Status: Never smoker alcohol intake: never current occupational status: retired Other Medical History Have you received the Flu Vaccine for this season: Yes Have you received the Pneumonia Vaccine: Yes ROS Obtained: Yes All systems reviewed & no additional complaints except as documented Physical Exam General General appearance: alert and in no apparent distress ENT ENT exam: Present other (Recent dental instructions no significant soft tissue swelling edema or purulence otherwise poor dentition) Neck Neck exam: Absent meningismus Respiratory Respiratory exam: Present normal lung sounds bilaterally Cardiovascular Cardiovascular exam: Present regular rate and normal rhythm Neurological Exam Neurological exam: Present alert, oriented X3, CN II-XII intact and normal gait; Absent motor sensory deficit Medical Decision Making Medical Records Screening: Per USPSTF and CDC recommendations, given the prevalence of disease in our region, it is our hospital?s policy to screen for HIV and viral Hepatitis for all patients aged 18 and over and those with ongoing risk factors. [facility] Inquiry Pt receiving controlled substance: No Vital Signs: 03/11/24 10:25 03/11/24 11:05 03/11/24 11:06 Temperature 97.7 F Temperature Source Oral Pulse Rate 74 77 Pulse Rate [Right Radial] 90 Respiratory Rate 16 16 Blood Pressure 118/91 H 118/91 H Blood Pressure [Right Arm] 157/111 H Blood Pressure Mean [Right Arm] 126 Blood Pressure Source Automatic Cuff Blood Pressure Source [Right Arm] Automatic Cuff Blood Pressure Position Sitting Blood Pressure Position [Right Arm] Sitting 02 Sat by Pulse Oximetry 95 96 98 Oxygen Delivery Method Room Air Room Air Room Air Orders (Tests/Meds): ED MEDICATIONS Generic Name Dose Route Start Last Admin Trade Name Freq PRN Reason Stop Dose Admin Sodium Chloride 10 ml 03/11/24 11:04 Sodium Chloride 0.9% 10ml Flush Syringe IV 04/10/24 11:03 NEEDED PRN Maintain IV Site Discontinued Medications Generic Name Dose Route Start Last Admin Trade Name Freq PRN Reason Stop Dose Admin Acetaminophen 1,000 mg 03/11/24 10:50 03/11/24 10:55 Acetaminophen 1,000mg/100ml Vial IV 03/11/24 10:51 1,000 mg ONCE ONE Administration Lactated Ringer's 500 mls @ 999 mls/hr 03/11/24 11:00 03/11/24 10:55 Lactated Ringer's 1000 Ml Bag IV 03/11/24 11:30 999 mls/hr .Q31M TERRI Administration ORDERS Category Date Time Status CT head/brain wo con Stat Cat Scan 03/11/24 10:50 Completed Medical Decision Narrative: Well-appearing 84-year-old female presents today with mouth and head pain following dental extractions most likely secondary to the nerve involvement associated with the recent surgical procedures. However given her age we will get a CT scan to rule out any type of significant emergent medical condition. I do not suspect subarachnoid hemorrhage meningitis etc. Will administer IV fluids and Tylenol. If she is not improved I may consider doing a nerve block to see if that alleviates her symptoms. Will reassess after this is complete. Reassessment 1214 patient tells me she is feeling much better actually offered her dental blocks but she turned this down as she states he is feeling much better. CT scan performed which I personally interpreted which shows no acute intracranial pathology radiology read consistent with this as well. She was reassured serial neurologic exams were normal she has been advised to follow back up with her dentist and follow-up outpatient with a primary care doctor or return to the emergency department any worsening symptoms. Critical Care Critical Care Time Critical Care Time: No
[2024-03-11] MEDS: LACTATED RINGERS 1000ML 500 ML 999 ML IV (10:55)
[2024-03-11] MEDS: ACETAMINOPHEN 1,000MG/100ML VIAL 1000 MG IV (10:55)
[2024-03-11 11:05] VITALS: BP 118/91; PULSE 74; O2SAT 96
[2024-03-11 11:06] VITALS: BP 118/91; PULSE 77; RESP 16; O2SAT 98
--- NOTE | 2024-03-11 11:13 | PC.NURSE ---
pt returned from ct scan.
[2024-03-11 12:22] VITALS: BP 120/98; PULSE 75; RESP 20; TEMP 36.5; O2SAT 98
== END 2024-03-11 12:23 | disposition home or self-care (01) ==
PROVIDERS: Emergency Provider Student in an Organized Health Care Education/Training Program; PCP Family Medicine
DX: K13.79 Other lesions of oral mucosa (principal); H92.01 Otalgia, right ear; R68.89 Other general symptoms and signs; R51.9 Headache, unspecified
CPT/HCPCS: 70450; 96361; 96374; 99284; J0131; J7120

== ENCOUNTER 2024-10-09 09:44 | Outpatient (CLI) | payer MEDICARE, SELFPAY ==
[2024-10-09 16:46] LABS: Uric Acid 3.2 mg/dl (2.5-6.2)
--- OUTSIDE RECORDS SUMMARY | 2024-10-11 09:45 | XMS_ITS | Encounter Summary ---
Author Organization Healthcare Address [address] [place] [address] Care Team Providers Care Respiratory Therapy Director Name Role Phone Christiano Hernandez MD Primary Care Provider +1- [phone] Encounter Details Date Type Department Care Team ([facility] st Contact Info) Description 10/23/2023 Orders Only External Location [address] [place] [address] Provider, External Social History Tobacco Use Types [...] on filedocumented in this encounter Care Teams Respiratory Therapy Director Relationship Specialty Start Date End Date Christiano Hernandez MD [address] [place] [address] PCP - General 08/28/20 documented as of this encounter
--- OUTSIDE RECORDS SUMMARY | 2024-10-11 09:45 | XMS_ITS | Clinical Summary ---
Author Organization [facility] [place] [address] Care Team Providers Care Material Attendant Name Role Phone Unavailable Primary Care Provider [...]
--- OUTSIDE RECORDS SUMMARY | 2024-10-11 09:45 | XMS_ITS | Clinical Summary ---
Author Organization [facility] Address [address] [place] [address] Care Team Providers Care Dedicated Local Truck Driver Name Role Phone Christiano Hernandez MD Primary Care Provider +1- [phone] Allergies Active Allergy Reactions Criticality Noted Date [...] or (1 - 1-dose 75+ series) 2013 [id number] Vaccine ( - season) 2023 04/13/2021, 08/26/2020, [...] this topic Insurance [employer] MEDICARE Care Teams Dedicated Local Truck Driver Relationship Specialty Start Date End Date Christiano Hernandez MD [address] [place] [address] PCP - General 5/14/21
== END 2024-10-09 23:59 | disposition home or self-care (01) ==
LOC: LAB.DROPOF 10-11 09:44
PROVIDERS: PCP Nurse Practitioner; Visit Provider Nurse Practitioner
DX: M79.671 Pain in right foot (principal); R60.0 Localized edema
CPT/HCPCS: 84550

== ENCOUNTER 2024-10-09 13:32 | Outpatient (CLI) | payer MEDICARE, SELFPAY ==
--- OUTSIDE RECORDS SUMMARY | 2024-10-09 13:35 | XMS_ITS | Clinical Summary ---
Author Organization [facility] Address [address] [place] [address] Care Team Providers Care Chemistry Quality Control Analyst Name Role Phone Christiano Hernandez MD Primary Care Provider +1- [phone] Allergies Active Allergy Reactions Criticality Noted Date Comments Aspirin GI bleeding High 03/09/2021 Brimonidine Itching High 02/08/2024 Cefdinir Diarrhea Low 04/13/2016 Medications No known medications Social History Tobacco Use Types Packs/Day Years Used Date Smoking Tobacco: Never Passive Smoke Exposure: Never Smokeless Tobacco: Never Comments No Sex and Gender Information Value Date Recorded Sex Assigned at Not on file Legal Sex Female 6:14 PM EDT Gender Identity Not on file Sexual Orientation Not on file Last Filed Vital Signs Vital Sign Reading Time Taken Comments Blood Pressure 159/83 02/08/2024 10:39 AM EDT Pulse 73 02/08/2024 10:39 AM EDT Temperature - - Respiratory Rate - - Oxygen Saturation - - Inhaled Oxygen Concentration - - Weight 38.4 kg (84 lb 10.5 oz) 02/08/2024 10:39 AM EDT Height 154.9 cm (5' 1 ) 02/08/2024 10:39 AM EDT Body Mass Index 16 02/08/2024 10:39 AM EDT Plan of Treatment Health Maintenance Due Date Last Done Comments [facility]-Bone Density Scan 1938 [facility]-Depression Screening 1938 [facility]-Medicare Annual Wellness (AWV) 1940 [facility]-Infant/Child/Adol SDOH Screenings 1940 [facility]- SDOH Screenings 01/27/1956 [facility]-Adult SDOH Screenings 01/27/1956 [facility]-Pneumococcal Vaccine: 50+ Years (1 of 1 - PCV) 01/27/1988 [facility]-DTaP,Tdap,and Td Vaccines (1 - Tdap) 06/26/1996 06/25/1996 [facility]-RSV Vaccine: 60+ Years or (1 - 1-dose 75+ series) 2013 [id number] Vaccine ( - season) 2023 04/13/2021, 08/26/2020, 08/05/2020 [facility]-Zoster Vaccines Completed 02/16/2023, 10/27/2022, 06/29/2016 [facility]-Influenza Vaccine Completed 01/22/2024 , 01/24/2023, 01/18/2022, Additional history exists HPV Vaccines Aged Out No longer eligi ble based on patient's age to complete this topic [facility]-HIB Vaccines Aged Out No longer e ligible based on patient's age to complete this topic [facility]-Hepatitis A Vaccines Aged Out No longer eligible based on patient's age to complete this topic [facility]-IPV Vaccines Aged Out No longer e ligible based on patient's age to complete this topic [facility]-Rotavirus Vaccines Aged Out No lo nger eligible based on patient's age to complete this topic Insurance [employer] MEDICARE Care Teams Chemistry Quality Control Analyst Relationship Specialty Start Date End Date Christiano Hernandez MD [address] [place] [address] PCP - General 5/14/21
--- OUTSIDE RECORDS SUMMARY | 2024-10-09 13:35 | XMS_ITS | Clinical Summary ---
Author Organization [facility] [place] [address] Care Team Providers Care Clinical Statistical Programmer Name Role Phone Unavailable Primary Care Provider Unavailabl e Social History Tobacco Use Types Packs/Day Years Used Date Smoking Tobacco: Never Assessed Comments Unknown Sex and Gender Information Value Date Recorded Sex Assigned at Not on file Legal Sex Female 2:15 PM EDT Gender Identity Not on file Sexual Orientation Not on file Plan of Treatment Health Maintenance Due Date Last Done Comments Annual Wellness Exam 1941 DTaP/TDaP/Td (1 - Tdap) 1957 Pneumococcal Vaccine 50+ (1 of 1 - PCV) 01/27/1988 Zoster (1 of 2) 01/27/1988 Bone Density Screening 2003 RSV or 60+ (1 - 1-d ose 75+ series) 2013 COVID-19 Vaccine ( - 2023-2 5 season) 2023 Influenza Vaccine (Season Ended) 2024 Hepatitis B Vaccine Aged Out No longe r eligible based on patient's age to complete this topic Meningococcal B Vaccine Aged Out No l onger eligible based on patient's age to complete this topic
--- OUTSIDE RECORDS SUMMARY | 2024-10-09 13:35 | XMS_ITS | Encounter Summary ---
Author Organization Healthcare Address [address] [place] [address] Care Team Providers Care Digital Printer Name Role Phone Christiano Hernandez MD Primary Care Provider +1- [phone] Encounter Details Date Type Department Care Team ([facility] st Contact Info) Description 10/23/2023 Orders Only External Location [address] [place] [address] Provider, External Social History Tobacco Use Types Packs/Day Years Used Date Smoking Tobacco: Never Assessed Comments Unknown Sex and Gender Information Value Date Recorded Sex Assigned at Not on file Legal Sex Female 6:14 PM EDT Gender Identity Not on file Sexual Orientation Not on file documented as of this encounter Plan of Treatment Not on file documented as of this encounter Procedures Procedure Name Priority Date/Time Associated Diagnosis Comments US OUTSIDE IMAGES 10/23/2023 10:29 AM EDT documented in this encounter Results * US OUTSIDE IMAGES (10/23/2023 10:29 AM EDT) Anatomical Region Laterality Modality Ultrasound 10/23/2023 10:2 9 AM EDT us External Provider IMG US PROCEDURES Final Result documented in this encounter Visit Diagnoses Not on filedocumented in this encounter Care Teams Digital Printer Relationship Specialty Start Date End Date Christiano Hernandez MD [address] [place] [address] PCP - General 08/28/20 documented as of this encounter
--- NOTE | 2024-10-09 13:49 | XR_ITS ---
FINAL REPORT CLINICAL HISTORY: right foot pain, RLE edema FINDINGS: RIGHT FOOT Three views were obtained. There is no fracture or dislocation. The joint spaces appear normal. The bones are osteopenic. There are mild degenerative changes of the first metatarsophalangeal joint. IMPRESSION: Mild degenerative changes of the first metatarsal phalangeal joint. Reviewed, Interpreted and Dictated by Indiana Amor MD Transcribed by Drea Garcia Authenticated and [facility]
--- NOTE | 2024-10-09 13:49 | XR_ITS ---
FINAL REPORT CLINICAL HISTORY: right foot pain, RLE edema FINDINGS: RIGHT ANKLE Three views were obtained. There is no fracture or dislocation. The joint spaces appear normal. The bones are osteopenic. There is soft tissue swelling over the lateral malleolus. IMPRESSION: Soft tissue swelling without acute bony abnormality. Reviewed, Interpreted and Dictated by Indiana Amor MD Transcribed by Drea Garcia Authenticated and [facility]
[2024-10-09 14:06] LABS: Microscopic, Urine URINE MICROSCOPIC (MICROSCOPIC)
[2024-10-09 14:33] LABS: Basophils % 0.6 % (0.1-2.0); Eosinophils # 0.1 Kmm3 (0.0-0.4); Hematocrit 38.7 % (37.0-47.0); Hemoglobin 12.3 g/dL (12.2-16.2); Immature Granulocytes # 0.02 10^3uL; Immature Granulocytes % 0.3 %; Lymphocytes # 2.1 K/mm3 (0.7-4.5); Mean Corpuscular HGB Conc 31.8 g/dL (31.8-35.4); Mean Corpuscular Hemoglobin 29.7 pg (27.0-31.2); Mean Corpuscular Volume 93.5 fl (81-99); Mean Platelet Volume 9.4 fl (7.4-10.4); Monocytes # 0.8 K/mm3 (0.1-1.0); Monocytes % 10.9 % (1.7-9.3); Neutrophils % 57.2 % (37.0-80.0); Nucleated Red Blood Cells # 0 10^3/uL; Nucleated Red Blood Cells % 0 %; Platelet Count 205 K/mm3 (142-424); Red Blood Count 4.14 M/mm3 (4.20-5.40); Red Cell Distribution Width 13.3 % (11.5-17.5); Red Cell Distribution Width-SD 46.1 fL
[2024-10-09 14:56] LABS: Albumin Level 3.6 g/dl (3.5-5.0); Chloride 100 mmol/L (98-107); Potassium 4.3 mmoL/L (3.5-5.1); Sodium 136 mmol/L (136-145)
[2024-10-09 14:59] LABS: Alanine Aminotransferase 10 U/L (12-78); Albumin/Globulin Ratio 1.4 (1.1-1.8); Alkaline Phosphatase 75 U/L (38-126); Anion Gap 13.3 mEq/L (5-15); Aspartate Amino Transferase 22 U/L (14-36); Bilirubin,Total 0.2 mg/dl (0.2-1.3); Blood Urea Nitrogen 14 mg/dl (7-17); Calcium 8.8 mg/dl (8.4-10.2); Carbon Dioxide 27 mmol/L (22.0-30.0); Estimated Glomerular Filt Rate 79 ml/min (>60); GFR (African American) 96 ML/MIN (>60); Globulin 2.6 g/dL (1.3-3.2); Glucose 88 mg/dl (74-100); Total Protein,Serum 6.2 g/dl (6.3-8.2)
--- NOTE | 2024-10-09 15:15 | CA_ITS ---
FINAL REPORT TECHNIQUE: Multiple transverse and longitudinal images were performed of the right femoral-popliteal deep venous system with augmentation and compression maneuvers. CLINICAL HISTORY: right foot pain > 1 year FINDINGS: Right lower extremity duplex ultrasound demonstrates normal flow in the deep venous system. There is no abnormal echogenicity to suggest thrombus. There is normal compression and augmentation. IMPRESSION: No evidence of right DVT. Reviewed, Interpreted and Dictated by Indiana Amor MD Transcribed by Drea Garcia Authenticated and [facility]
[2024-10-09 15:30] LABS: Thyroid Stimulating Hormone 0.42 uIU/mL (0.465-4.68)
[2024-10-09 15:50] LABS: Erythrocyte Sedimentation Rate 18 mm/hr (0-30)
[2024-10-09 16:05] LABS: Appearance,Urine CLEAR (Clear); Bilirubin,Urine Negative (Negative); Blood, Urine Negative (Negative); Color,Urine YELLOW (Yellow); Glucose,Urine (UA) Negative (Negative); Ketones,Urine 1+ (Negative); Leukocyte Esterase,Urine Negative (Negative); Nitrate,Urine Negative (Negative); Protein,Urine Negative (Negative); Specific Gravity, Urine 1.015 (1.005-1.030); Urobilinogen,Urine 0.2 EU/dl (0.2)
[2024-10-09 17:20] LABS: Bacteria,Urine Trace /lpf
[2024-10-09 21:49] LABS: Vitamin B12 320 pg/mL (239-931)
[2024-10-10 09:32] LABS: Uric Acid 3.3 mg/dl (2.5-6.2)
== END 2024-10-09 23:59 | disposition home or self-care (01) ==
LOC: RT 13:33
PROVIDERS: PCP Nurse Practitioner; Visit Provider Nurse Practitioner
DX: M19.071 Primary osteoarthritis, right ankle and foot (principal); M79.89 Other specified soft tissue disorders; R60.0 Localized edema; R53.81 Other malaise; R53.83 Other fatigue
CPT/HCPCS: 36415; 73600; 73620; 80053; 81001; 82607; 84443; 84550; 85025; 85651; 87086; 93971